=== PATIENT | male | born 1985 | race Caucasian/White ===

== ENCOUNTER 2020-04-17 19:12 | Emergency (ER) | payer OTHER ==
--- NOTE | 2020-04-17 19:20 | ERPHSYRPT ---
- History of Present Illness Time Seen by Provider: 04/17/20 20:05 Source: patient, family Exam Limitations: no limitations Physician History: This is a 34-year-old white male who has a history of panic attacks and presents with for symptom of tightness in his throat. He feels that this symptom precipitated a panic attack. He took Ativan twice and by the time he arrived he was feeling better but had persistent but milder symptoms of tightness in his throat. Patient denies shortness of breath and he denies chest pain. Patient is under a lot of stress at this time moving from [place]. First, moved in with the in-laws for short period time, then moved into a rental home and now is moving again into a purchased home. Timing/Duration: today Severity: mild Associated Symptoms: other (Tightness in his neck), No shortness of breath, No chest pain, No headaches, No seizure Allergies/Adverse Reactions: No Known Drug Allergies Allergy (Verified 04/17/20 20:03) Home Medications: Lorazepam 1 mg [Ativan 1 MG] 1 mg PO Q6-8HPRN PRN 04/17/20 [History] Travel Risk - International Travel Have you traveled outside of the country in past 3 weeks: No - Coronavirus Screening Are you exhibiting any of the following symptoms?: No Close contact with a COVID-19 positive Pt in past 14-21 Days: No - Review of Systems Constitutional: No Symptoms Eyes: No Symptoms Ears, Nose, & Throat: No Symptoms, Other (Tightness in his neck) Respiratory: No No Symptoms Cardiac: No Symptoms Abdominal/Gastrointestinal: No Symptoms Genitourinary Symptoms: No Symptoms Musculoskeletal: No Symptoms Skin: No Symptoms Neurological: No Symptoms Psychological: No Symptoms Endocrine: No Symptoms Hematologic/Lymphatic: No Symptoms Immunological/Allergic: No Symptoms All Other Systems: Reviewed and Negative - Past Medical History Pertinent Past Medical History: Yes Neurological History: No Pertinent History ENT History: No Pertinent History Cardiac History: No Pertinent History Respiratory History: No Pertinent History Endocrine Medical History: No Pertinent History Musculoskeletal History: No Pertinent History GI Medical History: No Pertinent History History: No Pertinent History Psycho-Social History: Anxiety, Panic Disorder - Past Surgical History Past Surgical History: No - Nursing Vital Signs Nursing Vital Signs: Initial Vital Signs Temperature 97.8 F 04/17/20 19:40 Pulse Rate 70 04/17/20 19:40 Respiratory Rate 18 04/17/20 19:40 Blood Pressure 146/96 04/17/20 19:40 O2 Sat by Pulse Oximetry 100 04/17/20 19:40 Pain Scale Pain Intensity 0 - Physical Exam General Appearance: no apparent distress, alert, anxiety Eye Exam: PERRL/EOMI, eyes nml inspection Ears, Nose, Throat Exam: normal ENT inspection, moist mucous membranes Neck Exam: normal inspection, non-tender, supple, full range of motion Respiratory Exam: normal breath sounds, lungs clear, airway intact, No chest tenderness, No respiratory distress, No wheezing, No stridor Cardiovascular Exam: regular rate/rhythm, normal heart sounds, normal peripheral pulses Gastrointestinal/Abdomen Exam: soft, normal bowel sounds, No tenderness Rectal Exam: not done Back Exam: normal inspection, normal range of motion, No CVA tenderness, No vertebral tenderness Extremity Exam: normal inspection, normal range of motion, pelvis stable Neurologic Exam: alert, oriented x 3, cooperative, ceo na II-XII nml as tested, nml cerebellar function, nml station & gait, sensation nml Skin Exam: normal color, warm, dry Lymphatic Exam: No adenopathy SpO2 Interpretation: normal O2 Delivery: Room Air - Course Nursing assessment & vital signs reviewed: Yes EKG Interpreted by Me: RATE ([id number]), Sinus Rhythm, NORMAL AXIS, NORMAL INTERVALS, NORMAL QRS, Other (No acute ischemic changes present on today's EKG. There is no comparison EKG available) Ordered Tests: Active Orders 24 hr Category Date Time Status Music Therapy Specialist STAT Care 04/17/20 20:04 Active EKG-ER Only STAT Care 04/17/20 20:03 Active IV Insertion STAT Care 04/17/20 20:03 Active CBC W DIFF Stat Lab 04/17/20 20:20 Completed CMP Stat Lab 04/17/20 20:20 Completed TROPONIN Q3H Lab 04/17/20 20:20 Completed TROPONIN Q3H Lab 04/17/20 23:15 Ordered TROPONIN Q3H Lab 04/18/20 02:15 Ordered TROPONIN Q3H Lab 04/18/20 05:15 Ordered TROPONIN Q3H Lab 04/18/20 08:15 Ordered Lab/Rad Data: Laboratory Result Diagrams 04/17/20 20:20 04/17/20 20:20 Laboratory Results 04/17/20 04/17/20 04/17/20 Range/Units 20:20 20:20 20:20 WBC 6.3 (4.0-10.5) K/mm3 RBC 4.93 (4.1-5.6) M/mm3 Hgb 14.8 (12.5-18.0) gm/dl Hct 43.2 (42-50) % MCV 87.6 (78-100) fl MCH 30.0 (26-32) pg MCHC 34.3 (32-36) g/dl RDW 12.4 (11.5-14.0) % Plt Count 212 (150-450) K/mm3 MPV 10.0 (7.5-11.0) fl Gran % 60.9 (36.0-66.0) % Eos # (Auto) 0.04 (0-0.5) Absolute Lymphs (auto) 1.78 (1.0-4.6) Absolute Monos (auto) 0.62 (0.0-1.3) Lymphocytes % 28.2 (24.0-44.0) % Monocytes % 9.8 (0.0-12.0) % Eosinophils % 0.6 (0.00-5.0) % Basophils % 0.5 (0.0-0.4) % Absolute Granulocytes 3.84 (1.4-6.9) Basophils # 0.03 (0-0.4) Sodium 137 (137-145) mmol/L Potassium 3.5 (3.5-5.1) mmol/L Chloride 101 (98-107) mmol/L Carbon Dioxide 27 (22-30) mmol/L Anion Gap 12.1 (5-15) MEQ/L BUN 12 (9-20) mg/dL Creatinine 0.68 (0.66-1.25) mg/dL Estimated GFR > 60.0 ML/MIN Glucose 108 H (74-106) mg/dL Calcium 9.2 (8.4-10.2) mg/dL Total Bilirubin 0.70 (0.2-1.3) mg/dL AST 27 (17-59) U/L ALT 22 (0-50) U/L Alkaline Phosphatase 45 (38-126) U/L Troponin I < 0.012 (0.000-0.034) ng/mL Serum Total Protein 7.3 (6.3-8.2) g/dL Albumin 4.4 (3.5-5.0) g/dL - Progress Progress: improved Counseled pt/family regarding: lab results, diagnosis - Departure Departure Disposition: Home Clinical Impression: Panic attack Condition: Stable Critical Care Time: No Referrals: DOCTOR,NO FAMILY [Primary Care Provider] - Additional Instructions: Take your medication as prescribed. Follow-up with your primary care physician for further management
[2020-04-17 20:44] LABS: Absolute Neutrophil Ct (ANC) 3.84 (1.4-6.9); BASOPHIL % 0.5 % (0.0-0.4); Basophil (Absolute #) 0.03 (0-0.4); Eosinophil % 0.6 % (0.00-5.0); Eosinophil (Absolute #) 0.04 (0-0.5); Hematocrit 43.2 % (42-50); Hemoglobin 14.8 gm/dl (12.5-18.0); Lymphocyte (Absolute #) 1.78 (1.0-4.6); Lymphocytes % 28.2 % (24.0-44.0); Mean Cell Volume 87.6 fl (78-100); Mean Corpuscular Hgb Concent. 34.3 g/dl (32-36); Monocyte (Absolute #) 0.62 (0.0-1.3); Monocytes % 9.8 % (0.0-12.0); Neutrophil % 60.9 % (36.0-66.0); Platelet Count 212 K/mm3 (150-450); Red Blood Count 4.93 M/mm3 (4.1-5.6); Red Cell Distribution Width 12.4 % (11.5-14.0); White Blood Count 6.3 K/mm3 (4.0-10.5)
[2020-04-17 21:04] LABS: ALBUMIN 4.4 g/dL (3.5-5.0); ALKALINE PHOSPHATASE 45 U/L (38-126); ANION GAP 12.1 MEQ/L (5-15); BLOOD UREA NITROGEN 12 mg/dL (9-20); CHLORIDE 101 mmol/L (98-107); Calcium 9.2 mg/dL (8.4-10.2); Carbon Dioxide 27 mmol/L (22-30); Creatinine 1 0.68 mg/dL (0.66-1.25); Glucose 108 mg/dL (74-106); Potassium 3.5 mmol/L (3.5-5.1); SGOT/AST 27 U/L (17-59); SGPT/ALT 22 U/L (0-50); SODIUM 137 mmol/L (137-145); Total Protein 7.3 g/dL (6.3-8.2)
[2020-04-17 21:22] VITALS: O2SAT 98
[2020-04-17 22:32] VITALS: BP 124/76; PULSE 66
== END 2020-04-17 22:20 | disposition home or self-care (01) ==
LOC: ED 19:12
DX: F41.0 Panic disorder [episodic paroxysmal anxiety] (principal)
CPT/HCPCS: 36000; 36415; 80053; 84484; 85025; 93005; 93041; 99284